=== PATIENT | male | born 1955 | race Caucasian/White ===

== ENCOUNTER 2020-01-06 10:08 | Emergency (ER) | payer MEDICARE ==
[~2020-01-06] VITALS: Ht 170.2 cm; Wt 85.7 kg
[~2020-01-06 10:08] MED LIST: CIPROFLOXACIN500 M3 PO; NORCO 5-325 TA1 EACH PO; ZESTRIL
[2020-01-06] MEDS ORDERED: FLOMAX0.4 MG PO (10:24)
[2020-01-06] MEDS ORDERED: LISINOPRIL20 MG PO (10:31)
[2020-01-06 10:48] LABS: INFLUENZA A ANTIGEN Negative (Negative); INFLUENZA B ANTIGEN Negative (Negative)
[2020-01-06] MEDS ORDERED: PROAIR HFA8.5 GM INH (11:15)
[2020-01-06 11:27] VITALS: BP 130/80
== END 2020-01-06 11:27 | disposition home or self-care (01) ==
LOC: M.ERS 10:08
PROVIDERS: Nurse Practitioner Family
DX: R05 Cough (principal); Z76.0 Encounter for issue of repeat prescription; Z90.49 Acquired absence of other specified parts of digestive tract; Z85.528 Personal history of other malignant neoplasm of kidney